=== PATIENT | female | born 1985 | race Two or more races ===

== ENCOUNTER 2019-12-09 11:02 | Outpatient (CLI) | payer OTHER | END 2019-12-09 11:18 | disposition home or self-care (01) | LOC: MAMO-SONO 11:02 | PROVIDERS: ATTEND Specialist | DX: N60.11 Diffuse cystic mastopathy of right breast (principal); N60.12 Diffuse cystic mastopathy of left breast ==

== ENCOUNTER 2021-05-19 09:18 | Outpatient (CLI) | payer OTHER | END 2021-05-19 09:22 | disposition home or self-care (01) | LOC: MAMO-SONO 09:18 | DX: N93.9 Abnormal uterine and vaginal bleeding, unspecified (principal); N60.12 Diffuse cystic mastopathy of left breast; N60.11 Diffuse cystic mastopathy of right breast ==

== ENCOUNTER 2024-06-20 10:20 | Outpatient (CLI) | payer OTHER | END 2024-06-20 10:32 | disposition home or self-care (01) | LOC: MAMO-SONO 10:20 | DX: R10.2 Pelvic and perineal pain (principal); N83.209 Unspecified ovarian cyst, unspecified side; D25.0 Submucous leiomyoma of uterus; D25.1 Intramural leiomyoma of uterus; D25.2 Subserosal leiomyoma of uterus; N63 Unspecified lump in breast; N64.4 Mastodynia; N60.11 Diffuse cystic mastopathy of right breast; N60.12 Diffuse cystic mastopathy of left breast ==